=== PATIENT | male | born 1995 | race Caucasian/White ===

== ENCOUNTER 2017-07-08 08:18 | Emergency (ER) | payer OTHER ==
[~2017-07-08] VITALS: Ht 170.2 cm; Wt 77.1 kg
[~2017-07-08 08:18] MED LIST: NOHOMEMEDICATIONS; NORCO 5-325 TA1 EACH PO
[2017-07-08] MEDS ORDERED: GLUCOPHAGE XR500 MG PO (08:24)
[2017-07-08] MEDS ORDERED: COZAAR 50 MG TA50 M2 PO (08:24)
[2017-07-08] MEDS ORDERED: HYDROCHLOROTH12.5 M1 PO (08:24)
[2017-07-08] MEDS ORDERED: CRESTOR40 MG PO (08:24)
[2017-07-08] MEDS ORDERED: JARDIANCE10 MG PO (08:25)
[2017-07-08 09:00] VITALS: BP 122/74
== END 2017-07-08 09:00 | disposition home or self-care (01) ==
LOC: M.ERS 08:18
DX: S93.401A Sprain of unspecified ligament of right ankle, initial encounter (principal); I10 Essential (primary) hypertension; E11.9 Type 2 diabetes mellitus without complications; E78.5 Hyperlipidemia, unspecified; W18.40XA Slipping, tripping and stumbling without falling, unspecified, initial encounter; Y93.89 Activity, other specified; Y92.89 Other specified places as the place of occurrence of the external cause; Y99.8 Other external cause status

== ENCOUNTER → 2017-07-16 | Outpatient (CLI) | payer OTHER ==
[~2017-07-16] MED LIST changes: +COZAAR 50 MG TA50 M2 PO; +CRESTOR40 MG PO; +GLUCOPHAGE XR500 MG PO; +HYDROCHLOROTH12.5 M1 PO; +JARDIANCE10 MG PO
[2017-07-16 10:39] LABS: CREATININE 0.8 mg/dL (0.6-1.3)
== END ==
LOC: M.CT 07-09 11:00 → M.LAB 10:00 → M.CT 10:12
PROVIDERS: Family Medicine
DX: R10.9 Unspecified abdominal pain (principal); R63.4 Abnormal weight loss